=== PATIENT | female | born 1990 | race Caucasian/White ===

== ENCOUNTER 2020-12-04 14:36 | Emergency (ER) | payer OTHER ==
[~2020-12-04] VITALS: Ht 170.2 cm; Wt 82.0 kg
[2020-12-04] MEDS ORDERED: KETOROLAC 60MG/2ML VIAL IM STA (15:22)
[2020-12-04] MEDS ORDERED: HYDROCODONE/ACETAMINOPHEN 5/325MG TABLET PO STA (15:22)
[2020-12-04] MEDS ORDERED: ACETAMINOPHEN 325MG TABLET PO NR (16:47)
[2020-12-04] MEDS ORDERED: IBUP-2029 PO (17:00)
[2020-12-04] MEDS ORDERED: T3 PO (17:00)
[2020-12-04 17:11] VITALS: BP 131/85
== END 2020-12-04 17:12 | disposition home or self-care (01) ==
LOC: ER 14:36
DX: S50.02XA Contusion of left elbow, initial encounter (principal); W18.39XA Other fall on same level, initial encounter; Y93.89 Activity, other specified; Y92.89 Other specified places as the place of occurrence of the external cause; Y99.8 Other external cause status; Z91.018 Allergy to other foods
CPT/HCPCS: 73060; 73080; 96372; 99284; J1885; A4565